=== PATIENT | male | born 1995 | race Caucasian/White ===

== ENCOUNTER 2017-11-25 12:28 | Emergency (ER) | payer OTHER, SELFPAY ==
[2017-11-25] MEDS ORDERED: LIDOCAINE 1% W/EPI 1:100,000 MDV 50 ML VIAL ONE (14:16)
--- NOTE | 2017-11-25 14:39 | ER ---
Nurse's Notes [facility] Name: Bryson Fishman Age: 22 yrs Sex: Male : 1995 Arrival Date: 11/25/2017 Time: 12:31 Bed 23 Private MD: None, None Diagnosis: Laceration of lip and oral cavity without foreign body Presentation: 11/25 13:11 Presenting complaint: Patient states: i hurt myself with a rubber malate and hurt my L hj upper lip and cut it; it happened an hour ago; denies LOC:. Transition of care: patient was not received from another setting of care. Complicating Factors: There are no complicating factors for this patient. Onset of symptoms was November 25, 2017. Initial Sepsis Screen: Does the patient meet any 2 criteria? No. Patient's initial sepsis screen is negative. Does the patient have a suspected source of infection? No. Patient's initial sepsis screen is negative. Care prior to arrival: None. 13:11 Method Of Arrival: Ambulatory 13:11 Acuity: MITA 4 hj Triage Assessment: 13:13 General: Appears in no apparent distress. uncomfortable, Behavior is calm, cooperative, hj appropriate for age. Pain: Denies pain. Injury Description: Laceration sustained to upper vermilion border. Historical: - Allergies: 13:12 No Known Allergies; hj - Home Meds: 13:12 None [Active]; hj - PMHx: 13:12 Asthma; hj - PSHx: 13:12 Tonsillectomy; hj - Immunization history:: Adult Immunizations up to date. - Social history:: The patient lives at home, Smoking status: unknown. Screenin:45 Abuse screen: Denies threats or abuse. Denies injuries from another. Nutritional aj1 screening: No deficits noted. Tuberculosis screening: No symptoms or risk factors identified. Fall Risk None identified. Assessment: 14:25 Reassessment: Patient appears agitated, standing in door way State "Are you going to do aj1 blood work, because if so, I'd rather get it done now. I have a job to get back to". Explained to patient that no labs are currently ordered but it will be up to ER physician if labs are ordered. Patient asks "Well how long is this going to take?" Explained to patient that everything needed for laceration repair is at bedside and the physician will be back as soon as he is able to suture lip. Patient states that he needs pain medication because his lip is painful. Explained to patient that the physician will numb his lip. Patient remains agitated states "He needs to come now because this really [place]." Notified Dr. Mason of patient complaint. 14:31 Reassessment: Dr. Mason at bedside. aj1 14:45 General: Appears in no apparent distress. comfortable, Behavior is calm, cooperative, aj1 appropriate for age. Pain: Denies pain. Neuro: Level of Consciousness is awake, alert, obeys commands, Oriented to person, place, time, situation, Speech is normal. Cardiovascular: Patient's skin is warm and dry. Respiratory: Airway is patent Respiratory effort is even, unlabored, Respiratory pattern is regular, symmetrical. GI: No signs and/or symptoms were reported involving the gastrointestinal system. : No signs and/or symptoms were reported regarding the genitourinary system. EENT: No signs and/or symptoms were reported regarding the EENT system. Derm: Skin is pink, warm \\T\\ dry. Musculoskeletal: Circulation, motion, and sensation intact. Injury Description: Laceration sustained to mouth is 0.5 to 2.5 cm long, not bleeding. Vital Signs: 13:14 BP 119 / 83; Pulse 101; Resp 18; Temp 98.8(TE); Pulse Ox 96% on R/A; Weight 68.04 kg; hj Height 5 ft. 10 in. (177.80 cm); 14:45 BP 127 / 75; Pulse 65; Resp 18; Pulse Ox 99% ; aj1 13:14 Body Mass Index 21.52 (68.04 kg, 177.80 cm) ED Course: 12:31 Patient arrived in ED. mr 12:32 None, None is Private Physician. mr 13:12 Triage completed. hj 13:14 Arm band placed on left wrist. 14:12 Jeremy Mason MD is Attending Physician. 14:23 Joie Hughes, FRANCISCO is Primary Nurse. aj1 14:30 Assist provider with laceration repair on mouth that was 2.5 cm. or less using sutures. aj1 Set up tray. Performed by Jeremy Mason MD Patient tolerated well. 14:45 Patient has correct armband on for positive identification. Bed in low position. Call aj1 light in reach. Side rails up X 1. 14:45 No provider procedures requiring assistance completed. Patient did not have IV access aj1 during this emergency room visit. Administered Medications: No medications were administered Outcome: 14:38 Discharge ordered by . 14:45 Discharged to home ambulatory. aj1 14:45 Condition: good 14:45 Discharge instructions given to patient, Instructed on discharge instructions, follow up and referral plans. Demonstrated understanding of instructions, follow-up care. 15:14 Patient left the ED. aj1 Signatures: Joie Hughes, RN RN Shital Lauren mr Brandon Tolliver RN RN Jeremy Lo MD MD gs
--- NOTE | 2017-11-25 15:15 | EDPHYS ---
Physician Documentation [facility] Name: Bryson Fishman Age: 22 yrs Sex: Male : 1995 Arrival Date: 11/25/2017 Time: 12:31 Bed 23 Private MD: None, None ED Physician Jeremy Mason HPI: 11/25 14:40 This 22 yrs old Male presents to ER via Ambulatory with complaints of gs Laceration To Lip. 14:40 The problem is located in the left corner of mouth and upper vermilion border. Onset: gs The symptoms/episode began/occurred acutely, just prior to arrival, DIRECT BLOW. Duration: The symptoms are continuous. Modifying factors: The symptoms are alleviated by nothing, the symptoms are aggravated by nothing. Associated signs and symptoms: Pertinent negatives: dysphagia, LOOSE TEETH. Severity of symptoms: At their worst the symptoms were moderate, in the emergency department the symptoms are unchanged. The patient has not experienced similar symptoms in the past. Historical: - Allergies: 13:12 No Known Allergies; hj - Home Meds: 13:12 None [Active]; hj - PMHx: 13:12 Asthma; hj - PSHx: 13:12 Tonsillectomy; hj - Immunization history:: Adult Immunizations up to date. - Social history:: The patient lives at home, Smoking status: unknown. ROS: 14:40 All other systems are negative. gs Exam: 14:40 Eyes: Pupils equal round and reactive to light, extra-ocular motions intact. Lids and gs lashes normal. Conjunctiva and sclera are non-icteric and not injected. Cornea within normal limits. Periorbital areas with no swelling, redness, or edema. Neck: Trachea midline, no thyromegaly or masses palpated, and no cervical lymphadenopathy. Supple, full range of motion without nuchal rigidity, or vertebral point tenderness. No Meningismus. 14:40 Constitutional: The patient appears alert, awake. 14:40 Head/face: Noted is a laceration(s), that is superficial, 1.25 cm(s), of the left corner of mouth and upper vermilion border. 14:40 ENT: Dental exam: no acute changes, fractured teeth are noted, not appreciated, pain, is not appreciated. Vital Signs: 13:14 BP 119 / 83; Pulse 101; Resp 18; Temp 98.8(TE); Pulse Ox 96% on R/A; Weight 68.04 kg; hj Height 5 ft. 10 in. (177.80 cm); 14:45 BP 127 / 75; Pulse 65; Resp 18; Pulse Ox 99% ; aj1 13:14 Body Mass Index 21.52 (68.04 kg, 177.80 cm) hj Laceration: 14:40 Wound Repair of 1.2cm ( 0.5in ) subcutaneous laceration to left corner of mouth and gs upper vermilion border. Distal neuro/vascular/tendon intact. Anesthesia: Local anesthetic administered with 2 mls of 1% lidocaine w/ Epi. Wound prep: Simple cleansing. Skin closed with 6 5-0 FAST GUT using simple sutures and sterile technique. Patient tolerated well. MDM: 14:16 Patient medically screened. gs 14:40 Differential diagnosis: LACERATION FACIAL. Data reviewed: vital signs, nurses notes. gs Response to treatment: the patient's symptoms have markedly improved after treatment. Administered Medications: No medications were administered Disposition: 11/25/17 14:38 Discharged to Home. Impression: Laceration of lip and oral cavity without foreign body. - Condition is Stable. - Discharge Instructions: Facial Laceration, [id number]. - Medication Reconciliation Form, Thank You Letter, Antibiotic Education, Prescription Opioid Use form. - Follow up: Private Physician; When: 5 - 6 days; Reason: Re-evaluation by your physician. Signatures: Joie Hughes RN RN aj1 Brandon Tolliver RN RN Jeremy Mason MD MD Corrections: (The following items were deleted from the chart) 15:14 14:38 11/25/2017 14:38 Discharged to Home. Impression: Laceration of lip and oral aj1 cavity without foreign body. Condition is Stable. Forms are Medication Reconciliation Form, Thank You Letter, Antibiotic Education, Prescription Opioid Use. Follow up: Private Physician; When: 5 - 6 days; Reason: Re-evaluation by your physician. gs
== END 2017-11-25 15:14 | disposition home or self-care (01) ==
LOC: ER 12:28
PROC: 0CQ0XZZ Repair Upper Lip, External Approach (ICD-10-PCS; principal; 2017-11-25)
DX: S01.511A Laceration without foreign body of lip, initial encounter (principal); X58.XXXA Exposure to other specified factors, initial encounter; Y93.9 Activity, unspecified; Y92.9 Unspecified place or not applicable
CPT/HCPCS: 99283

== ENCOUNTER 2018-01-06 13:15 | Emergency (ER) | payer SELFPAY ==
[2018-01-06] MEDS ORDERED: TETANUS & DIPHTHERIA TOX,ADULT 0.5 ML VIAL ONE (13:33)
[2018-01-06] MEDS ORDERED: LIDOCAINE 1% MPF 5 ML VIAL ONE (13:33)
--- NOTE | 2018-01-06 13:55 | EDPHYS ---
Physician Documentation [facility] Name: Bryson Fishman Age: 22 yrs Sex: Male : 1995 Arrival Date: 01/06/2018 Time: 13:17 Bed 18 Private MD: ED Physician Juanito Ruiz HPI: 01/06 14:06 This 22 yrs old Male presents to ER via Ambulatory with complaints of snw Laceration - Thumb. 14:06 The patient or guardian reports a laceration, dirty, 2.5 cm(s). The complaints affect snw the MCP of left thumb. 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 Onset: The symptoms/episode began/occurred suddenly, just prior to arrival. Associated signs and symptoms: The patient has no apparent associated signs or symptoms, Pertinent negatives: decreased sensation distally, numbness distally, tingling distally, loss of range of motion. Severity of symptoms: At their worst the symptoms were mild. The patient has not experienced similar symptoms in the past. bleeding controlled. Historical: - Allergies: 13:27 NKA; iw - Home Meds: 13:27 None [Active]; iw - PMHx: 13:27 Asthma; iw - PSHx: 13:27 Tonsillectomy; iw - Immunization history:: Adult Immunizations not up to date. - Social history:: Smoking status: Patient uses tobacco products, smokes one-half pack cigarettes per day. - Ebola Screening: : Patient negative for fever greater than or equal to 101.5 degrees Fahrenheit, and additional compatible Ebola Virus Disease symptoms Patient denies exposure to infectious person Patient denies travel to an Ebola-affected area in the 21 days before illness onset No symptoms or risks identified at this time. ROS: 14:04 Constitutional: Negative for fever, chills, and weight loss, Eyes: Negative for injury, snw pain, redness, and discharge, ENT: Negative for injury, pain, and discharge, Neck: Negative for injury, pain, and swelling, Cardiovascular: Negative for chest pain, palpitations, and edema, Respiratory: Negative for shortness of breath, cough, wheezing, and pleuritic chest pain, Abdomen/GI: Negative for abdominal pain, nausea, vomiting, diarrhea, and constipation, Back: Negative for injury and pain, : Negative for injury, bleeding, discharge, and swelling, MS/Extremity: Negative for injury and deformity, Neuro: Negative for headache, weakness, numbness, tingling, and seizure, Psych: Negative for depression, anxiety, suicide ideation, homicidal ideation, and hallucinations. 14:04 Skin: Positive for laceration(s), of the dorsal aspect of proximal phalanx of left thumb. Exam: 14:04 Constitutional: This is a well developed, well nourished patient who is awake, alert, snw and in no acute distress. Head/Face: Normocephalic, atraumatic. Eyes: Pupils equal round and reactive to light, extra-ocular motions intact. Lids and lashes normal. Conjunctiva and sclera are non-icteric and not injected. Cornea within normal limits. Periorbital areas with no swelling, redness, or edema. ENT: Nares patent. No nasal discharge, no septal abnormalities noted. Tympanic membranes are normal and external auditory canals are clear. Oropharynx with no redness, swelling, or masses, exudates, or evidence of obstruction, uvula midline. Mucous membranes moist. Neck: Trachea midline, no thyromegaly or masses palpated, and no cervical lymphadenopathy. Supple, full range of motion without nuchal rigidity, or vertebral point tenderness. No Meningismus. Chest/axilla: Normal chest wall appearance and motion. Nontender with no deformity. No lesions are appreciated. Cardiovascular: Regular rate and rhythm with a normal S1 and S2. No gallops, murmurs, or rubs. Normal PMI, no JVD. No pulse deficits. Respiratory: Lungs have equal breath sounds bilaterally, clear to auscultation and percussion. No rales, rhonchi or wheezes noted. No increased work of breathing, no retractions or nasal flaring. Abdomen/GI: Soft, non-tender, with normal bowel sounds. No distension or tympany. No guarding or rebound. No evidence of tenderness throughout. Back: No spinal tenderness. No costovertebral tenderness. Full range of motion. MS/ Extremity: Pulses equal, no cyanosis. Neurovascular intact. Full, normal range of motion. Neuro: Awake and alert, GCS 15, oriented to person, place, time, and situation. Cranial nerves II-XII grossly intact. Motor strength 5/5 in all extremities. Sensory grossly intact. Cerebellar exam normal. Normal gait. Psych: Awake, alert, with orientation to person, place and time. Behavior, mood, and affect are within normal limits. 14:04 Skin: Appearance: normal except for affected area, injury, laceration(s), the wound is approximately 2.5 cm(s), with a depth of 1 cm(s), of the lateral aspect of left hand. Vital Signs: 13:28 Resp 18 S; Pulse Ox 100% on R/A; Weight 68.04 kg; Height 5 ft. 10 in. (177.80 cm); Pain iw 0/10; 13:42 BP 147 / 99; Pulse 60; Resp 16 S; Temp 97.8(O); Pulse Ox 100% on R/A; Weight 68.04 kg jl7 (R); Height 5 ft. 7 in. (170.18 cm) (R); Pain 0/10; 13:42 Body Mass Index 23.49 (68.04 kg, 170.18 cm) jl7 Laceration: 14:10 Wound Repair of 2.5cm ( 1.0in ) subcutaneous laceration to dorsal aspect of proximal snw phalanx of left thumb. Linear shaped.. Distal neuro/vascular/tendon intact. Anesthesia: Local anesthetic administered with 4 mls of 1% lidocaine. Wound prep: Extensive cleansing with hibiclenz by me. Skin closed with 5 4-0 Prolene using simple sutures and sterile technique. Dressed with non-adherent dressing. Patient tolerated well. MDM: 13:29 Patient medically screened. snw 14:05 Data reviewed: vital signs, nurses notes. Data interpreted: Pulse oximetry: on room air snw is 100 %. Interpretation: normal. Counseling: I had a detailed discussion with the patient and/or guardian regarding: the historical points, exam findings, and any diagnostic results supporting the discharge/admit diagnosis, the presence of at least one elevated blood pressure reading (>120/80) during this emergency department visit, the need for outpatient follow up, to return to the emergency department if symptoms worsen or persist or if there are any questions or concerns that arise at home. Special discussion: I have referred the patient to see his PCP for further evaluation of high blood pressure. Based on the history and exam findings, there is no indication for further emergent testing or inpatient evaluation. I discussed with the patient/guardian the need to see the primary care provider for further evaluation of the symptoms. 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 Exp: jl7 03/19/2020. Lot #: [id number]. } Route: IM; Site: right deltoid; 13:46 Follow up: Response: No adverse reaction 7 Disposition: 17:00 Co-signature as Attending Physician, Juanito Ruiz MD I agree with the assessment and kdr plan of care. Disposition: 01/06/18 13:54 Discharged to Home. Impression: Laceration with foreign body of left thumb without damage to nail. - Condition is Stable. - Discharge Instructions: Hypertension, Laceration Care, Adult, Sutured Wound Care, VIS, Tetanus, Diphtheria (Td) - CDC. - Prescriptions for Keflex 500 mg Oral Capsule - take 1 capsule by ORAL route every 8 hours for 10 days; 30 capsule. Diclofenac Sodium 75 mg Oral Tablet Sustained Release - take 1 tablet by ORAL route 2 times per day; 30 tablet. - Medication Reconciliation Form, Thank You Letter, Antibiotic Education, Prescription Opioid Use form. - Follow up: Private Physician; When: 2 - 3 days; Reason: Recheck today's complaints, Continuance of care, Re-evaluation by your physician. Follow up: Emergency Department; When: As needed; Reason: Worsening of condition. Signatures: Juanito Ruiz MD MD kdr Therrien, Shelly, GERALD-C LEGAL PROCESS SPECIALIST-Csnw Jazzmine Ibrahim RN RN Ayala Pandey RN RN jl7 Corrections: (The following items were deleted from the chart) 14:09 13:54 01/06/2018 13:54 Discharged to Home. Impression: Laceration with foreign body of jl7 left thumb without damage to nail. Condition is Stable. Forms are Medication Reconciliation Form, Thank You Letter, Antibiotic Education, Prescription Opioid Use. Follow up: Private Physician; When: 2 - 3 days; Reason: Recheck today's complaints, Continuance of care, Re-evaluation by your physician. Follow up: Emergency Department; When: As needed; Reason: Worsening of condition. snw
--- NOTE | 2018-01-06 13:55 | ER ---
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 Transition of care: patient was not received from another setting of care. Complicating Factors: There are no complicating factors for this patient. Onset of symptoms was January 06, 2018. Risk Assessment: Do you want to hurt yourself or someone else? Patient reports no desire to harm self or others. Initial Sepsis Screen: Does the patient meet any 2 criteria? No. Patient's initial sepsis screen is negative. Does the patient have a suspected source of infection? No. Patient's initial sepsis screen is negative. Care prior to arrival: None. 13:26 Method Of Arrival: Ambulatory 13:26 Acuity: MITA 4 iw Historical: - Allergies: 13:27 NKA; iw - Home Meds: 13:27 None [Active]; iw - PMHx: 13:27 Asthma; iw - PSHx: 13:27 Tonsillectomy; iw - Immunization history:: Adult Immunizations not up to date. - Social history:: Smoking status: Patient uses tobacco products, smokes one-half pack cigarettes per day. - Ebola Screening: : Patient negative for fever greater than or equal to 101.5 degrees Fahrenheit, and additional compatible Ebola Virus Disease symptoms Patient denies exposure to infectious person Patient denies travel to an Ebola-affected area in the 21 days before illness onset No symptoms or risks identified at this time. Screenin:30 Abuse screen: Denies threats or abuse. Nutritional screening: No deficits noted. tw2 Tuberculosis screening: No symptoms or risk factors identified. Fall Risk None identified. Assessment: 13:30 General: Appears in no apparent distress. Pain: Denies pain. Neuro: Level of jl7 Consciousness is awake, alert, obeys commands, Oriented to person, place, time, situation. Cardiovascular: Patient's skin is warm and dry. Respiratory: Airway is patent Respiratory effort is even, unlabored, Respiratory pattern is regular, symmetrical. Derm: Skin is pink, warm \T\ dry. Musculoskeletal: No signs and/or symptoms reported regarding the musculoskeletal system. Injury Description: Laceration sustained to left thumb is contaminated, 0.5 to 2.5 cm long, was sustained 30-60 minutes ago. is bleeding a small amount. Vital Signs: 13:28 Resp 18 S; Pulse Ox 100% on R/A; Weight 68.04 kg; Height 5 ft. 10 in. (177.80 cm); Pain iw 0/10; 13:42 BP 147 / 99; Pulse 60; Resp 16 S; Temp 97.8(O); Pulse Ox 100% on R/A; Weight 68.04 kg jl7 (R); Height 5 ft. 7 in. (170.18 cm) (R); Pain 0/10; 13:42 Body Mass Index 23.49 (68.04 kg, 170.18 cm) jl7 ED Course: 13:17 Patient arrived in ED. as 13:18 [facility]C [facility] snw 13:19 Juanito Ruiz MD is Attending Physician. snw 13:26 Ayala Pandey RN is Primary Nurse. jl7 13:27 Triage completed. iw 13:28 Arm band placed on. iw 13:30 Bed in low position. Pulse ox on. NIBP on. tw2 13:43 Assist provider with laceration repair on lateral aspect of left hand that was 2.5 cm. jl7 or less using sutures. Set up tray. Performed by Keri HANEY Dressed with 4X4s, Neosporin, Patient tolerated well. 14:08 Patient did not have IV access during this emergency room visit. 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 Exp: jl7 03/19/2020. Lot #: [id number]. } Route: IM; Site: right deltoid; 13:46 Follow up: Response: No adverse reaction jl7 Outcome: 13:54 Discharge ordered by MD. benitez 14:08 Discharged to home ambulatory. jl7 14:08 Condition: stable 14:08 Discharge instructions given to patient, Instructed on discharge instructions, follow up and referral plans. medication usage, Demonstrated understanding of instructions, follow-up care, medications, Prescriptions given X 2. 14:09 Patient left the ED. jl7 Signatures: Keri Gray, INSPECTOR PACKAGER-C INSPECTOR PACKAGER-Csnw Cristin Gabriel Irene, RN RN iw Suzi Ness RN RN tw2 Ayala Pandey RN RN jl7
== END 2018-01-06 14:09 | disposition home or self-care (01) ==
LOC: ER 13:15
PROC: 0JQK0ZZ Repair Left Hand Subcutaneous Tissue and Fascia, Open Approach (ICD-10-PCS; principal; 2018-01-06)
DX: S61.022A Laceration with foreign body of left thumb without damage to nail, initial encounter (principal); W26.8XXA Contact with other sharp object(s), not elsewhere classified, initial encounter; Y92.69 Other specified industrial and construction area as the place of occurrence of the external cause; J45.909 Unspecified asthma, uncomplicated; F17.210 Nicotine dependence, cigarettes, uncomplicated
CPT/HCPCS: 90714; 99284

== ENCOUNTER 2018-04-06 08:02 | Emergency (ER) | payer SELFPAY ==
--- NOTE | 2018-04-06 08:17 | EDPHYS ---
Physician Documentation [facility] Name: Bryson Fishman Age: 22 yrs Sex: Male : 1995 Arrival Date: 04/06/2018 Time: 08:03 Bed 5 Private MD: None, None ED Physician Osvaldo Ravi HPI: 04/06 08:15 This 22 yrs old Male presents to ER via Ambulatory with complaints of kb Toothache. 08:15 The patient presents with pain, redness, swelling. The problem is located in the upper kb right first bicuspid (#5). Onset: The symptoms/episode began/occurred 3 day(s) ago. Duration: The symptoms are continuous. Modifying factors: The symptoms are alleviated by nothing, the symptoms are aggravated by nothing. Associated signs and symptoms: Pertinent positives: nausea, pain, redness in area, swelling, Pertinent negatives: anorexia, chills, dysphagia, fever, inability to eat, vomiting. Severity of symptoms: At their worst the symptoms were moderate, in the emergency department the symptoms are unchanged. The patient has not experienced similar symptoms in the past. The patient has not recently seen a physician. Pt reports toothache for 3 days. Was seen by dentist and given prescriptions for clindamycin and tylenol #3, but hasn't gotten them filled yet.. Historical: - Allergies: 08:12 NKA; ss - Home Meds: 08:12 None [Active]; ss - PMHx: 08:12 Asthma; ss - PSHx: 08:12 Tonsillectomy; Adenoids; ss - Immunization history:: Adult Immunizations up to date. - Social history:: Smoking status: Patient uses tobacco products, smokes one-half pack cigarettes per day. - Ebola Screening: : Patient denies exposure to infectious person Patient denies travel to an Ebola-affected area in the 21 days before illness onset. ROS: 08:16 Constitutional: Negative for fever, chills, and weight loss, Cardiovascular: Negative kb for chest pain, palpitations, and edema, Respiratory: Negative for shortness of breath, cough, wheezing, and pleuritic chest pain, Abdomen/GI: Negative for abdominal pain, nausea, vomiting, diarrhea, and constipation, MS/Extremity: Negative for injury and deformity, Skin: Negative for injury, rash, and discoloration, Neuro: Negative for headache, weakness, numbness, tingling, and seizure. 08:16 ENT: Positive for dental pain. Exam: 08:14 Constitutional: This is a well developed, well nourished patient who is awake, alert, kb and in no acute distress. Head/Face: Normocephalic, atraumatic. Chest/axilla: Normal chest wall appearance and motion. Nontender with no deformity. No lesions are appreciated. Cardiovascular: Regular rate and rhythm with a normal S1 and S2. No gallops, murmurs, or rubs. Normal PMI, no JVD. No pulse deficits. Respiratory: Lungs have equal breath sounds bilaterally, clear to auscultation and percussion. No rales, rhonchi or wheezes noted. No increased work of breathing, no retractions or nasal flaring. Abdomen/GI: Soft, non-tender, with normal bowel sounds. No distension or tympany. No guarding or rebound. No evidence of tenderness throughout. Back: No spinal tenderness. No costovertebral tenderness. Full range of motion. Skin: Warm, dry with normal turgor. Normal color with no rashes, no lesions, and no evidence of cellulitis. MS/ Extremity: Pulses equal, no cyanosis. Neurovascular intact. Full, normal range of motion. Neuro: Awake and alert, GCS 15, oriented to person, place, time, and situation. Cranial nerves II-XII grossly intact. Motor strength 5/5 in all extremities. Sensory grossly intact. Cerebellar exam normal. Normal gait. 08:14 ENT: Dental exam: abscess, that is mild, cellulitis, that is moderate, specifically in the upper right first bicuspid (#5), fractured teeth are noted, pain, that is moderate, specifically in the upper right first bicuspid (#5). Vital Signs: 08:12 BP 163 / 115; Pulse 94; Resp 18; Temp 98.1(O); Pulse Ox 99% on R/A; Weight 68.04 kg; ss Height 6 ft. 0 in. (182.88 cm); Pain 10/10; 08:12 Body Mass Index 20.34 (68.04 kg, 182.88 cm) ss MDM: 08:05 Patient medically screened. kb 08:14 Data reviewed: vital signs, nurses notes. Data interpreted: Pulse oximetry: on room air kb is 99 %. Interpretation: normal. 08:15 Counseling: I had a detailed discussion with the patient and/or guardian regarding: the kb historical points, exam findings, and any diagnostic results supporting the discharge/admit diagnosis, the need for outpatient follow up, a dentist, to return to the emergency department if symptoms worsen or persist or if there are any questions or concerns that arise at home. Administered Medications: 08:22 Drug: Clindamycin 600 mg {Note: 2 mL injected to L gluteus and 2 mL injected to R ss gluteus.} Route: IM; Site: Other; 08:22 Drug: [place] (7.5 mg-325 mg) 1 tabs Route: PO; Disposition: 14:50 Co-signature as Attending Physician, Osvaldo Ravi MD I agree with the assessment and rajani plan of care. Disposition: 04/06/18 08:17 Discharged to Home. Impression: Periapical abscess without sinus. - Condition is Stable. - Discharge Instructions: Dental Pain, [id number], Dental Abscess, [id number]. - Medication Reconciliation Form, Thank You Letter, Antibiotic Education, Prescription Opioid Use form. - Follow up: Emergency Department; When: As needed; Reason: Worsening of condition. Follow up: Private Physician; When: 2 - 3 days; Reason: Recheck today's complaints, Continuance of care, Re-evaluation by your physician. - Notes: Take medications previously prescribed by dentist Signatures: Amina Segovia FNP-C FNP-Osvaldo Bobo MD MD cha Williams, Irene, RN RN iw Smirch, Shelby, RN RN ss Corrections: (The following items were deleted from the chart) 08:45 08:17 04/06/2018 08:17 Discharged to Home. Impression: Periapical abscess without iw sinus. Condition is Stable. Forms are Medication Reconciliation Form, Thank You Letter, Antibiotic Education, Prescription Opioid Use. Follow up: Emergency Department; When: As needed; Reason: Worsening of condition. Follow up: Private Physician; When: 2 - 3 days; Reason: Recheck today's complaints, Continuance of care, Re-evaluation by your physician. kb
--- NOTE | 2018-04-06 08:17 | ER ---
Nurse's Notes [facility] Name: Bryson Fishman Age: 22 yrs Sex: Male : 1995 Arrival Date: 04/06/2018 Time: 08:03 Bed 5 Private MD: None, None Diagnosis: Periapical abscess without sinus Presentation: 04/06 08:10 Presenting complaint: Patient states: toothache x3 days. Patient reports he received ss two prescriptions (clindamycin and Tylenol #3) from clinic, but has been unable to fill prescriptions. Transition of care: patient was not received from another setting of care. Onset of symptoms was April 03, 2018. Risk Assessment: Do you want to hurt yourself or someone else? Patient reports no desire to harm self or others. Initial Sepsis Screen: Does the patient meet any 2 criteria? No. Patient's initial sepsis screen is negative. Does the patient have a suspected source of infection? Yes: Other: dental. Care prior to arrival: None. 08:10 Method Of Arrival: Ambulatory ss 08:10 Acuity: MITA 4 ss Historical: - Allergies: 08:12 NKA; ss - Home Meds: 08:12 None [Active]; ss - PMHx: 08:12 Asthma; ss - PSHx: 08:12 Tonsillectomy; Adenoids; ss - Immunization history:: Adult Immunizations up to date. - Social history:: Smoking status: Patient uses tobacco products, smokes one-half pack cigarettes per day. - Ebola Screening: : Patient denies exposure to infectious person Patient denies travel to an Ebola-affected area in the 21 days before illness onset. Screenin:10 Abuse screen: Denies threats or abuse. Denies injuries from another. Nutritional ss screening: No deficits noted. Tuberculosis screening: No symptoms or risk factors identified. Never had TB. Fall Risk None identified. Assessment: 08:10 General: Appears distressed, uncomfortable, Behavior is agitated, restless, tearful. ss Pain: Complains of pain in gums and upper right second bicuspid Quality of pain is described as tender, throbbing, Pain began 2-3 days ago. Is continuous, Noted to be crying, grimacing. Neuro: Level of Consciousness is awake, alert, obeys commands. Respiratory: Airway is patent Trachea midline Respiratory effort is even, unlabored, Respiratory pattern is regular, symmetrical. GI: Patient currently denies diarrhea, nausea, vomiting. EENT: Nares are clear Oral mucosa is moist. Poor dentition noted. Throat is clear. Derm: Skin is intact, is healthy with good turgor, Skin is pink, warm \T\ dry. normal. Musculoskeletal: Circulation, motion, and sensation intact. Range of motion: intact in all extremities, Swelling absent. Vital Signs: 08:12 BP 163 / 115; Pulse 94; Resp 18; Temp 98.1(O); Pulse Ox 99% on R/A; Weight 68.04 kg; ss Height 6 ft. 0 in. (182.88 cm); Pain 10/10; 08:12 Body Mass Index 20.34 (68.04 kg, 182.88 cm) ss ED Course: 08:03 Patient arrived in ED. sb2 08:03 None, None is Private Physician. sb2 08:05 Amin[facility] Seg[facility]C [facility]. kb 08:05 Osvaldo Ravi MD is Attending Physician. kb 08:09 Sharri Chaudhry, FRANCISCO is Primary Nurse. ss 08:10 Patient has correct armband on for positive identification. Bed in low position. ss 08:11 Triage completed. ss 08:12 Arm band placed on right wrist. ss 08:45 No provider procedures requiring assistance completed. Patient did not have IV access ss during this emergency room visit. Administered Medications: 08:22 Drug: Clindamycin 600 mg {Note: 2 mL injected to L gluteus and 2 mL injected to R ss gluteus.} Route: IM; Site: Other; 08:22 Drug: [place] (7.5 mg-325 mg) 1 tabs Route: PO; Outcome: 08:17 Discharge ordered by . kb 08:45 Patient left the ED. iw 08:45 Discharged to home ambulatory. ss 08:45 Condition: good 08:45 Discharge instructions given to patient, Instructed on discharge instructions, follow up and referral plans. medication usage, Demonstrated understanding of instructions, follow-up care, medications, Prescriptions given X Patient educated and verbalizes understanding that he needs to fill his prescriptions that he was given 3 days ago Signatures: Amina Segovia FNP-C FNP-Ckb Williams, Irene, RN RN Smirch, Sharri, RN RN ss Billeau, Galilea sb2
[2018-04-06] MEDS ORDERED: HYDROCODONE/APAP 7.5/325 MG TAB ONE (08:21)
[2018-04-06] MEDS ORDERED: CLINDAMYCIN IV 150 MG/ML (4 mL) VIAL ONE (08:22)
== END 2018-04-06 08:45 | disposition home or self-care (01) ==
LOC: ER 08:02
DX: K04.7 Periapical abscess without sinus (principal)
CPT/HCPCS: 96372; 99283; S0077

== ENCOUNTER 2024-08-05 14:37 | Emergency (ER) | payer BC ==
[2024-08-05] MEDS ORDERED: ONDANSETRON 4 MG/2 ML VIAL ONE (16:02)
[2024-08-05] MEDS ORDERED: PANTOPRAZOLE 40 MG INJ ONE (16:03)
[2024-08-05] MEDS ORDERED: NA CHLORIDE 0.9% 1,000 ML ONE (16:03)
[2024-08-05 16:38] LABS: Absolute Eosinophils 0.3 K/uL (0-0.5); Absolute Lymphocytes (CBC) 1.6 K/uL (0.7-4.9); Absolute Monocytes 0.7 K/uL (0.1-1.3); Absolute Neutrophil 4.1 K/uL (1.8-8.0); Basophils % 0.7 % (0-1.3); Eosinophils % 4.1 % (0-4.4); Hematocrit 49.4 % (39.6-49.0); Hemoglobin 16.6 g/dL (13.6-17.9); Lymphocytes % 23.2 % (15.3-44.8); MCH 29.6 pg (27.0-35.0); MCHC 33.6 g/dL (32.0-36.0); MPV 7.8 fL (7.6-11.3); Monocytes % 10.8 % (3.3-12.3); Neutrophils % 61.2 % (41.7-73.7); Nucleated Red Blood Cells % 0.1 % (0-0); Platelets 191 thou/uL (152-406); RBC Red Blood Cell Count 5.61 M/uL (4.33-5.43); Red Cell Distribution Width 13.4 % (12.1-15.2)
[2024-08-05 16:53] LABS: Albumin 3.6 g/dL (3.4-5.0); Albumin/Globulin Ratio 0.9 (1.1-1.8); Anion Gap 8.1 mEq/L (5.0-15.0); Bilirubin Total 0.3 mg/dL (0.2-1.0); Globulin 3.9 g/dL (2.3-3.5); Potassium 4.1 mEq/L (3.5-5.1); Protein, Total 7.5 g/dL (6.4-8.2)
--- NOTE | 2024-08-05 17:37 | RAD REPORT ---
EXAMINATION: CT ABDOMEN AND PELVIS WITH CONTRAST CLINICAL INDICATION: Male, 28 years old.upper abdomen pain TECHNIQUE: CT abdomen and pelvis was performed, after the administration of IV [facility]. Axial, sagittal and coronal reconstructions were obtained. One or more of the following dose reduction techniques were used: Automated exposure control, adjustment of the mA and/o r kV according to patient size, and/or iterative reconstruction. Unless otherwise specified, incidental findings do not require dedicated imaging follow-up. [id number]. COMPARISON: No prior exam. FINDINGS: LOWER CHEST: Minimal scarring versus atelectasis at the right lung base.No significant pericardial ef fusion. UPPER GI: No significant abnormality. LIVER: Hepatic steatosis, but otherwise unremarkable. GALLBLADDER/BILE DUCTS: No biliary ductal dilatation.? PANCREAS: No mass, ductal dilation, or isaac-pancreatic fluid. SPLEEN: Unremarkable. ADRENALS: No adrenal masses. KIDNEYS AND URETERS: No hydronephrosis.No suspicious renal mass. ABDOMINAL AORTA AND OTHER VESSELS: Mild atherosclerotic changes. PERITONEUM: No abnormal free fluid. No free air. LYMPH NODES: No pathologic lymphadenopathy. ABDOMINAL WALL: Unremarkable SMALL BOWEL/COLON: Small bowel has normal course and caliber. No colonic wall thickening or pericolon ic inflammatory changes.Normal appendix. URINARY BLADDER: Circumferential thickening though underdistended. REPRODUCTIVE ORGANS: No pathologic process. MUSCULOSKELETAL: No acute or suspicious osseous abnormality. ADDITIONAL FINDINGS: None. IMPRESSION: No acute or significant abnormalities seen in the abdomen or pelvis. Normal appendix. Circumferential bladder wall thickening which is nonspecific. Consider correlation with urinalysis to exclude infection.
[2024-08-05 17:40] LABS: Barbiturates NEGATIVE (NEGATIVE); Benzodiazepines NEGATIVE (NEGATIVE); Cocaine NEGATIVE (NEGATIVE); METHAMPHETAM NEGATIVE (NEGATIVE); Methadone NEGATIVE (NEGATIVE); Opiates NEGATIVE (NEGATIVE); Phencyclidine NEGATIVE (NEGATIVE); THC Cannibis NEGATIVE (NEGATIVE)
[2024-08-05 17:55] LABS: Specific Gravity 1.018 (1.005-1.030); Sqamous Epithelial None Seen /HPF (None Seen); Transitional Epithelial <5 /HPF (None Seen); Urine Bacteria <20 /HPF (<20); Urine Bilirubin NEGATIVE (Negative); Urine Blood Negative (Negative); Urine Clarity Clear (Clear); Urine Color Light-Yellow (Yellow); Urine Culture Reflex Order NOT NEEDED; Urine Glucose NEGATIVE (Negative); Urine Ketones NEGATIVE (Negative); Urine Micro Reflex YN NO BILL MICROSCOPIC; Urine Nitrite NEGATIVE (Negative); Urine Protein NEGATIVE (Negative); Urine RBC <5 /HPF (None Seen); Urine Urobilinogen Normal (Normal); Urine WBC <5 /HPF (<5)
--- NOTE | 2024-08-05 18:05 | ER ---
Nurse's Notes [facility] Name: Bryson Fishman Age: 28 yrs Sex: Male : 1995 Arrival Date: 08/05/2024 Time: 14:37 Bed 18 Private MD: Diagnosis: Epigastric pain Presentation: 08/05 14:53 Chief complaint: Patient states: Upper abdominal pain for 2-3 days. Worried about ll1 having another perforated ulcer. Coronavirus screen: Client denies travel out of the [place] in the last 14 days. At this time, the client does not indicate any symptoms associated with coronavirus-19. Ebola Screen: Patient denies travel to an Ebola-affected area in the 21 days before illness onset. Initial Sepsis Screen: Does the patient meet any 2 criteria? No. Patient's initial sepsis screen is negative. Does the patient have a suspected source of infection? No. Patient's initial sepsis screen is negative. Risk Assessment: Do you want to hurt yourself or someone else? Patient reports no desire to harm self or others. Onset of symptoms was August 03, 2024. 14:53 Method Of Arrival: Ambulatory ll1 14:53 Acuity: MITA 3 ll1 Triage Assessment: 14:56 General: Appears uncomfortable, Behavior is calm, cooperative, appropriate for age. ll1 Pain: Complains of pain in abdomen Quality of pain is described as aching, pressure. Neuro: No deficits noted. GI: Reports upper abdominal pain, bloating. Historical: - Allergies: 14:53 NKA; ll1 - PMHx: 14:53 Asthma; gastric ulcers; ll1 - PSHx: 14:53 Perforated Gastric Ulcer; Tonsillectomy; ll1 - Immunization history:: Adult Immunizations up to date. - Infectious Disease History:: Denies. - Social history:: Smoking status: Patient reports the use of cigarette tobacco products, smokes one-half pack cigarettes per day, Reported history of juuling and/or vaping. Screenin:46 [facility] ED Fall Risk Assessment (Adult) History of falling in the last 3 months, kc6 including since admission No falls in past 3 months (0 pts) Confusion or Disorientation No (0 pts) Intoxicated or Sedated No (0 pts) Impaired Gait No (0 pts) Mobility Assist Device Used No (0 pt) Altered Elimination No (0 pt) Score/Fall Risk Level 0 - 2 = Low Risk Oriented to surroundings, Maintained a safe environment, Educated pt \T\ family on fall prevention, incl call for assistance when getting out of bed. Abuse screen: Denies threats or abuse. Denies injuries from another. Nutritional screening: No deficits noted. Tuberculosis screening: No symptoms or risk factors identified. Assessment: 15:15 General: Appears in no apparent distress. comfortable, well groomed, well developed, kc6 Behavior is cooperative, appropriate for age, agitated. Pain: Complains of pain in epigastric area, right upper quadrant and right lower quadrant Pain currently is 7 out of 10 on a pain scale. Neuro: Level of Consciousness is awake, alert, obeys commands, Oriented to person, place, time, situation, Appropriate for age. Cardiovascular: Capillary refill < 3 seconds. Respiratory: Airway is patent Trachea midline Respiratory effort is even, unlabored, Respiratory pattern is regular, symmetrical. GI: Abdomen is flat, non-distended, Bowel sounds present X 4 quads. Abd is soft X 4 quads Abdomen is tender to palpation in epigastric area, right upper quadrant and right lower quadrant Reports upper abdominal pain, Patient currently denies diarrhea, nausea, vomiting. : No signs and/or symptoms were reported regarding the genitourinary system. Urine is clear. EENT: No signs and/or symptoms were reported regarding the EENT system. Derm: No signs and/or symptoms reported regarding the dermatologic system. Skin is intact, is healthy with good turgor, Skin is pink, warm \T\ dry. Musculoskeletal: No signs and/or symptoms reported regarding the musculoskeletal system. Circulation, motion, and sensation intact. Range of motion: intact in all extremities. 16:15 Reassessment: Patient appears in no apparent distress at this time. No changes from kc6 previously documented assessment. Patient and/or family updated on plan of care and expected duration. Pain level reassessed. Patient is alert, oriented x 3, equal unlabored respirations, skin warm/dry/pink. 17:15 Reassessment: Patient appears in no apparent distress at this time. No changes from kc6 previously documented assessment. Patient and/or family updated on plan of care and expected duration. Pain level reassessed. Patient is alert, oriented x 3, equal unlabored respirations, skin warm/dry/pink. 18:17 Reassessment: Patient appears in no apparent distress at this time. No changes from [facility] previously documented assessment. Patient and/or family updated on plan of care and expected duration. Pain level reassessed. Patient is alert, oriented x 3, equal unlabored respirations, skin warm/dry/pink. Patient states feeling better. Patient states symptoms have improved. Vital Signs: 14:53 BP 148 / 104; Pulse 87; Resp 16; Temp 97.3; Pulse Ox 99% on R/A; Pain 7/10; ll1 18:17 BP 140 / 90; Pulse 87; Resp 16 S; Pulse Ox 100% on R/A; kc6 14:53 Pain Scale: Adult ll1 ED Course: 14:39 Patient arrived in ED. mr 14:40 Osvaldo Schwartz PA is PHCP. cp 14:40 Osvaldo Ravi MD is Attending Physician. cp 14:53 Arm band placed on. ll1 14:56 Triage completed. ll1 15:20 Radiology exam delayed due to lab results not completed at this time. (BUN/Creatinine) nj IV insertion attempt and/or patient not having appropriate IV at this time. 15:52 Patient placed in an exam room, on a stretcher. kc6 15:59 Radiology exam delayed due to lab results not completed at this time. (BUN/Creatinine). nj 15:59 Radiology exam delayed due to IV insertion attempt and/or patient not having nj appropriate IV at this time. 16:00 Jyoti Fishman, RN is Primary Nurse. [facility] 16:45 Initial lab(s) drawn, by me, sent to lab. Missed attempt(s): 22 gauge in left kc6 antecubital area. Inserted saline lock: 20 gauge in right forearm, using aseptic technique. Blood collected. Flushed with 10 mL NS. 16:46 Patient has correct armband on for positive identification. Bed in low position. Call [facility] light in reach. Side rails up X 1. Adult w/ patient. Pulse ox on. NIBP on. Door closed. Noise minimized. Lights dimmed. Pillow given. 17:28 CT Abd/Pelvis - IV Contrast Only In Process Unspecified. EDMS 18:04 Ho Sullivan MD is Referral Physician. cp 18:18 No provider procedures requiring assistance completed. IV discontinued, intact, kc6 bleeding controlled, No redness/swelling at site. Pressure dressing applied. Administered Medications: 16:45 Drug: Ondansetron IVP 4 mg IVP once; over 2 minutes Route: IVP; Site: right forearm; kc6 17:17 Follow up: Response: No adverse reaction kc6 16:45 Drug: NS 0.9% IV 1000 ml IV at 1 bolus Per protocol; to be given as a bolus over 60 kc6 minutes Route: IV; Rate: 1 bolus; Site: right forearm; 16:45 Drug: Pantoprazole IVP 40 mg IVP once Route: IVP; Site: right forearm; kc6 17:17 Follow up: Response: No adverse reaction kc6 Medication: 18:18 VIS not applicable for this client. kc6 Outcome: 18:05 Discharge ordered by MD. cp 18:18 Discharged to home ambulatory, with significant other, kc6 18:18 Condition: good 18:18 Discharge instructions given to patient, significant other, Instructed on discharge instructions, follow up and referral plans. medication usage, Demonstrated understanding of instructions, follow-up care, medications, Prescriptions given X 2, 18:18 Patient left the ED. kc6 Signatures: Dispatcher [employer] EDMS Burt Kathy, Reg Reg mr Osvaldo Schwartz, JM PA Chris Palmer Lynsay, FRANCISCO RN ll1 Jyoti Fishman RN RN kc6 Corrections: (The following items were deleted from the chart) 15:01 14:53 Chief complaint: Patient states: Upper abdominal pain for 2-3 days. ll1 ll1 17:59 15:52 Reassessment: Patient and/or family updated on plan of care and expected kc6 duration. Pain level reassessed. kc6
--- NOTE | 2024-08-05 18:05 | EDPHYS ---
Physician Documentation [facility] Name: Bryson Fishman Age: 28 yrs Sex: Male : 1995 Arrival Date: 08/05/2024 Time: 14:37 Bed 18 Private MD: ED Physician Osvaldo Ravi HPI: 08/05 15:05 This 28 yrs old Black Male presents to ER via Ambulatory with complaints of Abdominal cp Pain. 15:05 The patient presents with abdominal pain in the epigastric area, in the upper abdomen. cp Onset: The symptoms/episode began/occurred 3 day(s) ago. The symptoms do not radiate. Associated signs and symptoms: Pertinent negatives: chest pain, constipation, diarrhea, fever, vomiting. The symptoms are described as waxing/waning. Severity of pain: in the emergency department the pain is unchanged. Patient reports history of gastric ulcer perforation and pain is similar. Historical: - Allergies: 14:53 NKA; ll1 - PMHx: 14:53 Asthma; gastric ulcers; ll1 - PSHx: 14:53 Perforated Gastric Ulcer; Tonsillectomy; ll1 - Immunization history:: Adult Immunizations up to date. - Infectious Disease History:: Denies. - Social history:: Smoking status: Patient reports the use of cigarette tobacco products, smokes one-half pack cigarettes per day, Reported history of juuling and/or vaping. ROS: 15:10 Constitutional: Negative for body aches, chills, fever, poor PO intake, cp 15:10 Eyes: Negative for injury, pain, redness, and discharge, cp 15:10 ENT: Negative for drainage from ear(s), ear pain, sore throat, difficulty swallowing, difficulty handling secretions, 15:10 Cardiovascular: Negative for chest pain, edema, palpitations, 15:10 Respiratory: Negative for cough, shortness of breath, wheezing, 15:10 Abdomen/GI: Positive for abdominal pain, 15:10 Neuro: Negative for altered mental status, dizziness, headache, weakness, 15:10 All other systems are negative, Exam: 15:15 Constitutional: The patient appears in no acute distress, alert, awake, cp non-diaphoretic, non-toxic, well developed, well nourished, uncomfortable, 15:15 Head/Face: Normocephalic, atraumatic. cp 15:15 Eyes: Periorbital structures: appear normal, Conjunctiva: normal, no exudate, no injection, Sclera: no appreciated abnormality, Lids and lashes: appear normal, bilaterally, 15:15 ENT: External ear(s): are unremarkable, Nose: is normal, Mouth: Lips: moist, Oral mucosa: moist, Posterior pharynx: Airway: no evidence of obstruction, patent, 15:15 Chest/axilla: Inspection: normal, 15:15 Cardiovascular: Rate: normal, Rhythm: regular, 15:15 Respiratory: the patient does not display signs of respiratory distress, Respirations: normal, no use of accessory muscles, no retractions, labored breathing, is not present, Breath sounds: are clear throughout, no decreased breath sounds, no stridor, no wheezing, 15:15 Abdomen/GI: Inspection: scar(s), are noted in the epigastric area and midline upper abdomen, Bowel sounds: active, all quadrants, Palpation: soft, in all quadrants, moderate abdominal tenderness, in the epigastric area, rebound tenderness, is not appreciated, involuntary guarding, is not appreciated, 15:15 Neuro: Orientation: to person, place \T\ time. Mentation: is normal, Vital Signs: 14:53 BP 148 / 104; Pulse 87; Resp 16; Temp 97.3; Pulse Ox 99% on R/A; Pain 7/10; ll1 18:17 BP 140 / 90; Pulse 87; Resp 16 S; Pulse Ox 100% on R/A; kc6 14:53 Pain Scale: Adult ll1 MDM: 14:55 Medical Screening Exam initiated 16:00 Differential diagnosis: cholecystitis, Cholelithiasis, gastritis, gastroesophageal cp reflux disease, non-specific abd pain, pancreatitis, Peptic Ulcer Disease, Perf. Duodenal Ulcer, Perf. Gastric Ulcer. 18:05 Data reviewed: vital signs, nurses notes, lab test result(s), radiologic studies, CT cp scan, and as a result, I will discharge patient. 18:05 I considered the following discharge prescriptions or medication management in the emergency department Medications were administered in the Emergency Department. See MAR. 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 Response to treatment: the patient's symptoms have mildly improved after treatment, and as a result, I will discharge patient. Special discussion: Based on the patient's Hx, exam, and Dx evaluation, there is no indication for emergent surgery or inpatient Tx. It is understood by the patient/guardian that if the Sx's persist or worsen they need to return immediately for re-evaluation. 08/05 15:01 Order name: CBC with Diff; Complete Time: 17:39 cp 08/05 17:39 Interpretation: Normal except: RBC 5.61; HCT 49.4. cp 08/05 15:01 Order name: CMP; Complete Time: 17:39 cp 08/05 17:39 Interpretation: Reviewed. cp 08/05 15:01 Order name: Lipase; Complete Time: 17:39 cp 08/05 15:01 Order name: UDS; Complete Time: 17:41 cp 08/05 17:41 Order name: Urinalysis W/Microscopic cp 08/05 15:01 Order name: CT Abd/Pelvis - IV Contrast Only; Complete Time: 17:39 cp 08/05 15:01 Order name: IV Saline Lock; Complete Time: 16:45 cp 08/05 15:01 Order name: Labs collected and sent; Complete Time: 16:45 cp Administered Medications: 16:45 Drug: Ondansetron IVP 4 mg IVP once; over 2 minutes Route: IVP; Site: right forearm; kc6 17:17 Follow up: Response: No adverse reaction [facility] 16:45 Drug: NS 0.9% IV 1000 ml IV at 1 bolus Per protocol; to be given as a bolus over 60 kc6 minutes Route: IV; Rate: 1 bolus; Site: right forearm; 16:45 Drug: Pantoprazole IVP 40 mg IVP once Route: IVP; Site: right forearm; kc6 17:17 Follow up: Response: No adverse reaction kc6 Disposition Summary: 08/05/24 18:05 Discharge Ordered Notes: Location: Home cp Problem: new cp Symptoms: have improved cp Condition: Stable cp Diagnosis - Epigastric pain cp Followup: cp - With: Ho Sullivan MD - When: 5 - 6 days - Reason: Recheck today's complaints Discharge Instructions: - Discharge Summary Sheet cp - Abdominal Pain, Adult cp - Upper Endoscopy, Adult cp Forms: - Medication Reconciliation Form cp - Antibiotic Education cp - Prescription Opioid Use cp - Patient Portal Instructions cp - Leadership Thank You Letter cp - Work release form kc6 Prescriptions: - Carafate 1 gram Oral tablet - take 1 tablet ORAL route 4 times per day take on an empty stomach, beginning on cp waking and last dose at bedtime. dissolve tablet in 6-8 oz warm water; 100 tablet; Refills: 0, Product Selection Permitted - Protonix 40 mg Oral tablet, delayed release (enteric coated) - take 1 tablet ORAL route every 12 hours; 30 tablet; Refills: 0, Product cp Selection Permitted Addendum: 08/11/2024 07:22 Co-signature as Attending Physician, Osvaldo Ravi MD I agree with the assessment and c lewis plan of care. Signatures: Dispatcher [employer] EDOsvaldo Vallecillo MD MD cha Page, Corey, PA PA Hue Mack RN RN ll1 Jyoti Fishman RN RN kc6 Corrections: (The following items were deleted from the chart) 08/05 15:01 15:01 CBC+H.LAB.BRZ ordered. EDMS EDMS 15:01 15:01 COMPREHENSIVE METABOLIC PANEL+C.LAB.BRZ ordered. EDMS EDMS 15:01 15:01 LIPASE+C.LAB.BRZ ordered. EDMS EDMS 15:01 15:01 Abdomen Pelvis W Con+CT.RAD.BRZ ordered. EDMS EDMS 17:41 17:41 Urinalysis W/Microscopic+U.LAB.BRZ ordered. EDMS EDMS
[2024-08-06 03:10] VITALS: BP 140/90; TEMP 97.3; O2SAT 100
== END 2024-08-05 18:18 | disposition home or self-care (01) ==
LOC: ER 14:37
DX: R10.13 Epigastric pain (principal); F17.210 Nicotine dependence, cigarettes, uncomplicated
CPT/HCPCS: 85025; 81001; 36415; 83690; 80053; 80307; 74177; 96375; 96374; 99284; Q9967; J2470; J2405; J7030